=== PATIENT | male | born 2000 | race Caucasian/White ===

== ENCOUNTER 2019-01-07 04:02 | Emergency (ER) | payer OTHER ==
[~2019-01-07] VITALS: Ht 170.2 cm; Wt 64.4 kg
[2019-01-07 04:08] VITALS: Ht 170.2 cm; Wt 64.4 kg
[2019-01-07 05:16] VITALS: BP 110/63
== END 2019-01-07 05:16 | disposition home or self-care (01) ==
LOC: ED 04:02
DX: S01.112A Laceration without foreign body of left eyelid and periocular area, initial encounter (principal); W01.0XXA Fall on same level from slipping, tripping and stumbling without subsequent striking against object, initial encounter; Y93.89 Activity, other specified; Y92.89 Other specified places as the place of occurrence of the external cause; Y99.8 Other external cause status
CPT/HCPCS: J2001

== ENCOUNTER 2019-01-12 15:28 | Emergency (ER) | payer OTHER ==
[2019-01-12 16:14] VITALS: BP 91/42
== END 2019-01-12 16:14 | disposition home or self-care (01) ==
LOC: ED 15:28
DX: S01.112D Laceration without foreign body of left eyelid and periocular area, subsequent encounter (principal); Y04.8XXD Assault by other bodily force, subsequent encounter